=== PATIENT | male | born 1965 | race Caucasian/White ===

== ENCOUNTER 2018-05-18 18:29 | Observation (INO) ==
[2018-05-18] MEDS ORDERED: Ondansetron ODT 4 MG TAB.RAPDIS SL PRN (20:45)
--- NOTE | 2018-05-18 20:48 | General Surg History&Physical ---
Date of Encounter: 05/18/18 Time of Encounter: 20:48 Assessment and Plan (1) Acute appendicitis with localized peritonitis Current Visit: Yes Status: Acute 52M with acute appendicitis; admit IVF NPO abx pain control consent for lap appy poss open; on add on for 05/19/2018 The assessment and plan as outlined above was discussed with the patient and/or family members who expressed understanding and agreement. All questions were answered. History of Present Illness Chief complaint: acute appendicitis HPI: Mr. Almodovar is a 52 year old male h/o HTN who presents with 6 days of vague abdominal pain that, over the last 12-24hrs has localized to the right side. No associated fevers, chills, nausea or vomiting. He is still having normal bowel function. He last ate ~ 1700 today. He had a CT scan, which was reviewed and interpreted by me, which confirms acute appendicitis; no evidence of abscess or free air. Past Med Surg Social Fam HX - Past Medical History Medical history: hypertension Psychiatric history: no psych history - Past Surgical History Additional surgical history: Vasectomy, - Social History Smoking Status: Current every day smoker Smokeless Tobacco Status: No Alcohol use: rarely Drug use: none - Additional Family History Additional family history: non contributory Review of Systems All systems PM: The remainder of the systems were reviewed and are negative General Surgery Exam Initial Vital Signs Temp Pulse Resp BP Pulse Ox 98 F 64 18 131/80 98 05/18/18 18:38 05/18/18 18:38 05/18/18 18:38 05/18/18 18:38 05/18/18 18:38 - General physical appearance no distress - Eyes normal ocular movement - ENT normocephalic - Neck no lymphadectomy - Respiratory normal expansion, normal respiratory effort - Cardiovascular Cardiovascular exam: Present: RRR - Abdomen Abdomen general surgery: Present: soft, tender Abdominal Tenderness: Present: RLQ ((-)Rosving sign; ) - Integumentary Integumentary general surgery: Present: warm and dry - Neurologic Present: CN 2-12 grossly intact - Musculoskeletal Present: normal posture - Psychiatric Psychiatric general surgery: Present: A&Ox3 Results - Labs All other labs normal. - Imaging CT scan - abdomen: report reviewed, image reviewed CT scan - pelvis: report reviewed, image reviewed
[2018-05-18] MEDS: OXYCODONE Oral CONC 10 MG/0.5 ML ORAL.SYG SL PRN (21:18)
[2018-05-18] MEDS: 0.9 % Sodium Chloride 1,000 ML IVC SCH (21:19)
[2018-05-18] MEDS: Piperacillin/Tazobactam 3.375 GM in 0.9 % Sodium Chloride Mini Bag 100 ML IVPB SCH (23:27)
[2018-05-19] MEDS: 0.9 % Sodium Chloride 1,000 ML IVC SCH ×2 (05:49→14:04)
--- NOTE | 2018-05-19 06:41 | Electrocardiograph Report ---
[address] [place], [place] [address] Test Date: 2018-05-18 Pat Name: Sam Almodovar Department: 103 Room: 3A Gender: M Air Bag Curer: WALE : 1965 Requested By: Christopher Boothe Order Number: [id number] Reading MD: Derrick Davis Measurements Intervals [place] Rate: 52 P: 159 ME: 138 QRS: 202 QRSD: 92 T: 165 QT: 392 QTc: 371 Interpretive Statements SINUS BRADYCARDIA ARM LEADS REVERSED Electronically Signed On 05-19-2018 6:39:38 EDT by Derrick Davis
--- NOTE | 2018-05-19 08:03 | General Surgery Progress Note ---
Date of Encounter: 05/19/18 Time of Encounter: 08:02 - Assessment and Plan (1) Acute appendicitis with localized peritonitis Current Visit: Yes Status: Acute 4M with acute appenicitis; on abx, receiving IVF OR Today Subjective Patient reports: no new complaints, still having pain, afebrile Objective Vital Signs - Last 8 Hours Temp Pulse Resp BP Pulse Ox 05/19/18 07:08 98.1 F 50 14 101/64 96 05/19/18 05:47 97.6 F 44 14 98/61 97 Intake and Output 05/18/18 05/19/18 05/19/18 23:59 07:59 15:59 Intake Total 0 / 0 1100 / 1100 Output Total 0 / 0 100 / 100 Balance 0 / 0 1000 / 1000 Intake: IV Fluids 1100 / 1100 0.9 % Sodium Chloride 1,000 ML 1000 / 1000 @ 125 mls/hr IVC .Q8H DANNA Rx#: [id number] Zosyn 3.375 GM In 0.9 % Sodium 100 / 100 Chloride (Mini-Bag +) 100 ML @ 25 mls/hr IVPB Q8HR DANNA Rx#: [id number] Oral 0 / 0 0 / 0 Output: Urine 0 / 0 100 / 100 Other: Weight 83.461 kg 83.461 kg Blood Glucose* 90 Patient Weight 05/19/18 23:59 Weight 83.461 kg - General physical appearance no distress - Respiratory normal expansion, normal respiratory effort - Cardiovascular Cardiovascular exam: Present: RRR - Abdomen Abdomen: Present: soft, tender Abdominal Tenderness: RLQ - Neurologic CN 2-12 grossly intact - Psychiatric oriented to time, oriented to person, oriented to place Consult Discharge Plan - Plan Referrals: Dana Saravia PERFORMANCE INSTRUCTOR [Primary Care Provider] -
[2018-05-19] MEDS: Piperacillin/Tazobactam 3.375 GM in 0.9 % Sodium Chloride Mini Bag 100 ML IVPB SCH ×3 (08:18→22:58)
--- NOTE | 2018-05-19 14:49 | Discharge Summary ---
<Sharyn Mustafa - Last Filed: 05/19/18 14:55> Date of Encounter: 05/19/18 Time of Encounter: 08:00 - Discharge Diagnosis (1) Acute appendicitis with localized peritonitis Priority: Primary Status: Acute (2) Essential hypertension with goal blood pressure less than 130/80 Priority: Secondary Status: Chronic General Surgery Exam Initial Vital Signs Temp Pulse Resp BP Pulse Ox 98 F 64 18 131/80 98 05/18/18 18:38 05/18/18 18:38 05/18/18 18:38 05/18/18 18:38 05/18/18 18:38 - Hospital Course Hospital course: Mr. Almodovar is a 52 year old male who presented on 05/18/2018 with complaints of 6 day history of abdominal pain with localization over the previous [address] was consistent with acute appendicitis. He was taken to the operating room on 05/19/2018 where he underwent an uncomplicated laparoscopic appendectomy. He is ambulating avoiding without difficulty, tolerating a diet without nausea or vomiting, vital signs are stable, and he is afebrile. We will begin discharge planning to home with follow-up in the office in approximately 2 weeks. Time spent discussing smoking cessation with patient: 3 to 10 minutes - Time Spent with Patient Total time spent providing and/or coordinating discharge services: - Discharge Medications Prescriptions: Ibuprofen 800 mg PO Q8H 30 Days #90 tablet Oxycodone HCl/Acetaminophen [Percocet 5-325 mg Tablet] 1 each PO Q6H PRN 7 Days #28 tablet PRN Reason: Moderate Pain Home Medications: Aspirin Enteric Coated [Aspirin EC] 81 mg PO DAILY 05/18/18 [History] Lisinopril [Zestril] 10 mg PO DAILY 05/18/18 [History] [place]-3/Dha/Epa/Fish Oil [Fish Oil 1,000 mg Softgel] 1 cap PO DAILY 05/18/18 [ History] Ibuprofen 800 mg PO Q8H 30 Days #90 tablet 05/19/18 [Rx] Oxycodone HCl/Acetaminophen [Percocet 5-325 mg Tablet] 1 each PO Q6H PRN 7 Days #28 tablet 05/19/18 [Rx] Allergies/Adverse Reactions: 3 Allergy/AdvReac Type Severity Reaction Status Date / Time No Known Allergies Allergy Verified 05/18/18 22:00 Date of admission: 05/18/18 22:00 Primary care physician: Dana Saravia CNP Anticipated date of discharge: 05/20/18 Labs on day of discharge: Labs from last 24 hours 05/19/18 05/19/18 11:49 05:36 POC Glucose 92 90 - Patient Status Disposition: Home, Self-Care Functional capacity at discharge: independent ambulation Overall status at discharge: patient is progressing back to baseline - Discharge Instructions Instructions: Laparoscopic Appendectomy (DC) Follow Up With: Dana Saravia CNP [Primary Care Provider] - Sharyn Mustafa CNP [Advanced Practice Nurse] - Christopher Boothe MD [Emergency Provider] - 05/25/18 9:00 am Forms: ED Satisfaction Letter, Work/School Release Additional Instructions: General Surgical Discharge Instructions 1. No pushing, pulling, or lifting greater than 15 lbs for 2 weeks 2. You may shower beginning today, but no tub baths, soaking, or swimming for 2 weeks. 3. You may resume driving when you are off narcotics and are safe to react in a car. 4. Take ibuprofen every 8 hours for discomfort. If this does not relieve discomfort, you may take the as needed Percocet. Take narcotics as directed. Do not take more narcotics then directed and do not share your narcotics with any other person. Do not drink alcohol while on narcotics. 5. Take stool softeners (Colace) or a water based laxative (Miralax) while taking narcotics. You may hold for loose stools. 6. Report any fevers greater than 100.5F, increase abdominal discomfort, drainage that looks like pus, increased redness or pain at the surgical site, or any vomiting. 7. Report any pain in the calves, shortness of breath, or rapid heartbeat. 8. Follow-up in the office as directed - Diet and Activity Activity: increase activity as tolerated Diet: advance to your usual diet <Poornima Chahal - Last Filed: 05/20/18 11:16> Orders not resulted at time of discharge: Pending orders 05/19/18 19:04 Surgical Pathology [PTH] Routine Date of Encounter: 05/20/18 - Discharge Diagnosis (1) Acute appendicitis with localized peritonitis Priority: Primary Status: Resolved General Surgery Exam Initial Vital Signs Temp Pulse Resp BP Pulse Ox 98 F 64 18 131/80 98 07/02/18 18:38 05/18/18 18:38 05/18/18 18:38 05/18/18 18:38 05/18/18 18:38 - General physical appearance well developed, well nourished, no distress, no pain - Eyes normal ocular movement - ENT normal mucosa, atraumatic, normocephalic - Neck trachea midline - Respiratory normal expansion, normal respiratory effort, clear to auscultation - Cardiovascular Cardiovascular exam: Present: RRR - Abdomen Abdomen general surgery: Present: bowel sounds present, soft, non tender - Incision Incision: Present: clean and dry, intact - Integumentary Integumentary general surgery: Present: warm and dry - Neurologic Present: CN 2-12 grossly intact - Musculoskeletal Present: normal gait, normal posture - Psychiatric Psychiatric general surgery: Present: appropriate, oriented to person, oriented to place, oriented to time, speech is normal, memory intact - Hospital Course Hospital course: Mr. Almodovar is a 52 year old male - Time Spent with Patient Total time spent providing and/or coordinating discharge services: Less than 30 minutes Date of admission: 05/18/18 22:00 Primary care physician: Dana Saravia, PLATE DRILLER Discharging clinician: Poornima Chahal Labs on day of discharge: Labs from last 24 hours 05/19/18 05/19/18 05/19/18 15:07 15:07 15:07 WBC 10.7 RBC 4.08 L Hgb 12.8 L Hct 37.1 L MCV 90.9 MCH 31.4 MCHC 34.5 RDW 13.0 Plt Count 404 H MPV 8.7 L Immature Gran % 0.4 Seg Neutrophils % 65.4 Lymphocytes % 24.5 Monocytes % 7.4 Eosinophils % 1.9 Basophils % 0.4 Neutrophils # 7.0 Lymphocytes # 2.6 Monocytes # 0.8 Eosinophils # 0.2 Basophils # 0.0 PT 12.3 H INR 1.1 APTT 31.5 Sodium 139 Potassium 4.3 Chloride 108 H Carbon Dioxide 26 BUN 15 Creatinine 0.93 Est GFR ( Amer) > 60 Est GFR (Non-Af Amer) > 60 BUN/Creatinine Ratio 16 Glucose 89 POC Glucose Calculated Osmolality 288 Calcium 8.9 05/19/18 11:49 WBC RBC Hgb Hct MCV MCH MCHC RDW Plt Count MPV Immature Gran % Seg Neutrophils % Lymphocytes % Monocytes % Eosinophils % Basophils % Neutrophils # Lymphocytes # Monocytes # Eosinophils # Basophils # PT INR APTT Sodium Potassium Chloride Carbon Dioxide BUN Creatinine Est GFR ( Amer) Est GFR (Non-Af Amer) BUN/Creatinine Ratio Glucose POC Glucose 92 Calculated Osmolality Calcium - Attending Attestation For this encounter, I have reviewed the FLIGHT RESERVATIONS MANAGER or PA documentation, treatment plan, and medical decision making; and I have had face to face time with this patient.
[2018-05-19 15:23] LABS: Basophils % 0.4 %; Eosinophils # 0.2 K/mcL (0.0-0.6); Eosinophils % 1.9 %; Hematocrit 37.1 % (37.5-50.1); Hemoglobin 12.8 g/dL (12.9-16.9); Immature Granulocytes % 0.4 % (0-4); Lymphocytes # 2.6 K/mcL (0.6-4.6); Lymphocytes % 24.5 %; Mean Corpuscular HGB Conc 34.5 g/dL (31.6-35.5); Mean Corpuscular Hemoglobin 31.4 pg (28.0-33.3); Mean Corpuscular Volume 90.9 fL (83.0-100.0); Mean Platelet Volume 8.7 fL (9.4-12.4); Monocytes # 0.8 K/mcL (0.0-1.3); Monocytes % 7.4 %; Platelet Count 404 K/mcL (140-400); Red Blood Count 4.08 M/mcL (4.19-5.50); Segmented Neutrophils % 65.4 %
[2018-05-19] MEDS: OXYCODONE Oral CONC 10 MG/0.5 ML ORAL.SYG SL PRN (15:31)
[2018-05-19 15:34] LABS: INR 1.1; Prothrombin Time 12.3 Seconds (9.4-12.1)
[2018-05-19 15:37] LABS: Activated Partial Thrombo Time 31.5 Seconds (26.0-36.0)
[2018-05-19 15:44] LABS: BUN/Creatinine Ratio 16 (6-26); Blood Urea Nitrogen 15 mg/dL (6-20); Calcium 8.9 mg/dL (8.6-10.3); Carbon Dioxide 26 mEq/L (23-29); Chloride 108 mEq/L (98-107); Glucose 89 mg/dL (70-105); Osmolality,Calculated 288 (280-300); Potassium 4.3 mEq/L (3.5-5.1); Sodium 139 mEq/L (136-145); eGFR For African Americans > 60 (> 60); eGFR For Non-African Americans > 60 (> 60)
[2018-05-19] MEDS: Ipratropium/Albuterol Neb 3 ML IH SCH ×3 (15:51→20:01)
[2018-05-19] MEDS ORDERED: Dexamethasone 4 MG/ML VIAL ONE ×2 (17:01→17:15)
[2018-05-19] MEDS ORDERED: Lidocaine -MPF 2% 2 ML VIAL ONE ×2 (17:01→17:15)
[2018-05-19] MEDS ORDERED: Neostigmine Methylsulfate 3 MG/3 ML SYRINGE ONE ×2 (17:01→17:15)
[2018-05-19] MEDS ORDERED: *HR* Succinylcholine 200 MG/10 ML VIAL IVP ONE ×2 (17:01→17:15)
[2018-05-19] MEDS ORDERED: Lidocaine -MPF 4% 5 ML AMPUL ONE (17:01)
[2018-05-19] MEDS ORDERED: Ondansetron 4 MG/2 ML VIAL ONE ×2 (17:01→17:15)
[2018-05-19] MEDS ORDERED: *HR* Propofol 200 MG/20 ML VIAL IVP ONE ×3 (17:01→19:08)
[2018-05-19] MEDS ORDERED: *HR* FentaNYL (PF) 100 MCG/2 ML VIAL ONE ×2 (17:01→18:03)
[2018-05-19] MEDS ORDERED: *HR* Rocuronium Bromide 50 MG/5 ML VIAL ONE ×2 (17:01→17:15)
--- NOTE | 2018-05-19 17:23 | Anesthesia Evaluation PreOp ---
Date of Encounter: 05/19/18 Time of Encounter: 17:21 - Past History Planned Operation: Laparoscopic Appendectomy Cardiac History: HTN, Hyperlipidemia Pulmonary History: Denies Any Significant HX, Snore MANAGER FILE History: Denies Any Significant HX Other Medical History: Denies Any Significant HX Anesthesia History: Past Anesthesia (no prior general anesthesia) Alcohol Use: rarely Drug use: none Medications and Allergies Aspirin Enteric Coated [Aspirin EC] 81 mg PO DAILY 05/18/18 [History] Lisinopril [Zestril] 10 mg PO DAILY 05/18/18 [History] [place]-3/Dha/Epa/Fish Oil [Fish Oil 1,000 mg Softgel] 1 cap PO DAILY 05/18/18 [ History] Docusate Sodium [Colace] 100 mg PO BID #30 capsule 05/19/18 [Rx] Ibuprofen 800 mg PO Q8H 30 Days #90 tablet 05/19/18 [Rx] Oxycodone HCl/Acetaminophen [Percocet 5-325 mg Tablet] 1 each PO Q6H PRN 7 Days #28 tablet 05/19/18 [Rx] 3 Allergy/AdvReac Type Severity Reaction Status Date / Time No Known Allergies Allergy Verified 05/18/18 22:00 - Meds/Allergy Pre-op Review Medications Reviewed: Yes Allergies Reviewed: Yes Beta Blockers on Current Med List: No Anesthesia Results - Labs 05/19/18 15:07 05/19/18 15:07 Laboratory Tests 05/19/18 15:07 PT 12.3 H INR 1.1 APTT 31.5 - Imaging EKG: report reviewed (05/18/2018 SINUS BRADYCARDIA ARM LEADS REVERSED) Anesthesia Exam Vital Signs/O2 Sat, Most Current Temp Pulse Resp BP Pulse Ox 98.2 F 54 16 121/73 99 05/19/18 15:01 05/19/18 15:01 05/19/18 15:54 05/19/18 15:01 05/19/18 15:54 Height: 5'8''/1.73m Weight: 184 lbs/83.46 kg NPO (# of Hours): 8 Pain Scale: 3 (abdomen) Pain Scale Used: Numeric (1 - 10) - HEENT Pupil (Motor): EOMI Mallampati: II Teeth: Normal Denture Type: Upper: Complete Oral Opening: Greater than 3 - MANAGER FILE LOC: Oriented MANAGER FILE Motor: Normal RUE, Normal LUE, Normal RLE, Normal LLE, Normal Face MANAGER FILE Sensory: Normal: RUE, LUE, RLE, LLE, Face - Cardiac Rhythm: Regular Murmur: None - Pulmonary Breath Sounds: bilateral Clear Respiratory Effort: Symmetrical Anesthesia Assess/Plan ASA Score: 2 Modified [place] Scale for Level of Consciousness: Cooperative, oriented, and tranquil Anesthetic Plan: General Monitoring Plan: Standard Monitors Recovery Plan: PACU
[2018-05-19] MEDS ORDERED: *HR* Midazolam HCl 2 MG/2 ML VIAL ONE (18:03)
[2018-05-19] MEDS ORDERED: Acetaminophen IV 1,000 MG/100 ML INFUS..BTL ONE (18:30)
[2018-05-19] MEDS ORDERED: Piperacillin/Tazobactam 3.375 GM in 0.9 % Sodium Chloride Mini Bag 100 ML IVPB ONE (18:35)
[2018-05-19] MEDS ORDERED: *HR* Meperidine 25 MG/ML SYRINGE IVP PRN (18:44)
[2018-05-19] MEDS ORDERED: Ondansetron 4 MG/2 ML VIAL IVP ONE (18:44)
[2018-05-19] MEDS ORDERED: *HR* Promethazine 25 MG/ML VIAL IVP PRN (18:44)
[2018-05-19] MEDS ORDERED: *HR* HYDROmorphone (PF) 1 MG/ML SYRINGE IVP PRN (18:44)
[2018-05-19] MEDS ORDERED: *HR* OxyCODONE Immed Rel 5 MG TABLET PO PRN (18:44)
[2018-05-19] MEDS ORDERED: Ketorolac 30 MG/ML VIAL ONE (19:08)
--- NOTE | 2018-05-19 19:39 | Operative Note ---
Date of procedure: 05/19/18 Pre-op diagnosis: acute appendicitis Post-op diagnosis: same Procedure: laparoscopic appendectomy Implants: none Complications: none Anesthesia: GETA Local Anesthetics: 0.5% Sensorcaine HCL SubQ (cc) Surgeon: Christopher Boothe Was there an assistant associate full professor present: Yes Environmental Technical Officer: Susan Moran Estimated blood loss (cc): 5 Specimen: appendix Condition: stable Disposition: PACU Procedure in Detail: The patient was brought into the operating room suite. The patient was placed in the supine position. Mechanical DVT prophylaxis was initiated. The patient underwent smooth induction of general endotracheal anesthesia. The patient was prepped and draped in the usual fashion. Preoperative antibiotics were given. A timeout was held identifying the correct patient, pathology, and procedure. Everyone was in agreement and we began a procedure. Incision to Mesenteric Window I started by creating a supraumbilical incision and via open Mars technique entered into the abdomen. I then used a Vicryl suture on a UR 6 needle in a [id number] fashion to reapproximate but not close the fascia. I then inserted the 10 trocar followed by the camera to visualize the intraabdominal cavity. I then created a 5 mm incision suprapubically and inserted the 5 mm trocar under direct visualization. Roughly 1 handbreadth lateral to the umbilical incision I created another 5 mm incision and inserted another 5 mm trocar under direct visualization. I then inserted the nontraumatic instruments into the 5 mm ports and began the procedure. I was able to identify the tinea coli coalescing at the base of the cecum to identify the appendix. Using the nontraumatic grasper I was able to grasp the appendix and then using the [place] dissector was able to create a mesenteric window. Mesenteric Window to Appendectomy I then inserted the nontraumatic grasper into the same mesenteric window to widen it. I then grasped the appendix and switched from the 10 mm camera to the 5 mm camera so that we can insert the stapler through the umbilical port. The teeth of the stapler through the mesenteric window. It should be stated that the stapler was a 45 mm bowel load stapler. It was positioned at the base of the appendix and I was able to confirm under direct visualization that the teeth contained no other structures such as the cecum. I then fired the stapler and resected the appendix from the base of the cecum. I then loaded up a vascular load stapler and then in the similar fashion did fire across the mesentery. Retrieval to Closure I then inserted the Endo Catch bag to retrieve the specimen which was intact upon retrieval. Iunder direct visualization I was able to appreciate the staple line of the mesoappendix as well as the staple line of the base of the cecum. There was no obvious leaking nor bleeding. The pelvis did not have any collection of fluid. I then concluded the procedure, turned off the insufflation, removed the trochars under direct visualization, and then closed the umbilical fascia using the Vicryl suture that was placed at the beginning. I then closed all incisions with interrupted 4-0 Monocryl. And then sealed with Dermabon. It should be stated that I did use 0.5% Marcaine as a local anesthetic. The patient tolerated the procedure well and did go back to PACU in stable condition.
[2018-05-19] MEDS ORDERED: OXYCODONE Oral CONC 10 MG/0.5 ML ORAL.SYG SL PRN (20:34)
[2018-05-19] MEDS ORDERED: Ondansetron ODT 4 MG TAB.RAPDIS SL PRN (20:34)
[2018-05-19] MEDS ORDERED: 0.9 % Sodium Chloride 1,000 ML IVC SCH (20:34)
--- NOTE | 2018-05-19 21:12 | Anesthesia Evaluation Post Op ---
Date of Encounter: 05/19/18 Time of Encounter: 20:00 - Vital Signs Vital Signs: Vital Signs/O2 Sat/Glucose, Most Current Temp Pulse Resp BP Pulse Ox 05/19/18 19:59 97.7 F 56 16 106/69 99 05/19/18 19:49 98.2 F 55 16 122/78 98 05/19/18 19:39 54 16 117/83 99 05/19/18 19:29 52 16 97/63 96 05/19/18 19:19 98.0 F 54 16 103/67 95 - Lungs Lungs: Clear Ascult./Percussion - Airway Airway: Non-obstructed - Cardiovascular Regular Rate - Mental Status Mental Status: Alert & Oriented, Answers Appropriately - Pain Pain Scale: 0 Pain Scale used: Numeric (1 - 10) - Nausea Vomiting Nausea Vomiting: Not Present - Hydration Hydration: Ice chips, Has not voided - Discharge PostOp Status: Transfer Patient to floor
[2018-05-20] MEDS: Piperacillin/Tazobactam 3.375 GM in 0.9 % Sodium Chloride Mini Bag 100 ML IVPB SCH (08:12)
[2018-05-20 10:53] VITALS: BP 149/76
== END 2018-05-20 11:46 | disposition home or self-care (01) ==
LOC: EMEROO 18:29 → 3ANU 18:29
PROVIDERS: ADMIT Surgery; ATTEND Surgery